=== PATIENT | female | born 1980 | race Caucasian/White ===

== ENCOUNTER → 2024-02-01 13:06 | Outpatient (REF) | payer OTHER, SELFPAY | LOC: PNTC 13:06 | PROVIDERS: ATTENDING PHYSICIAN Obstetrics & Gynecology | DX: O09.519 Supervision of elderly primigravida, unspecified trimester (principal) | CPT/HCPCS: 76801; 76817 ==

== ENCOUNTER 2024-02-15 06:29 | Day surgery (SDC) | payer OTHER, SELFPAY ==
[2024-02-15] VITALS (9 sets, daily range): BP systolic 109–138; BP diastolic 66–78; BMI 27.2
[2024-02-15] MEDS: NORMOSOL-R 1000 IV (11:52)
[2024-02-15 12:00] LABS: Hematocrit 39.8 % (37.0-47.0); Hemoglobin 13.7 g/dL (12.0-16.0)
[2024-02-15] MEDS: VIBRAMYCIN 270 MG IV (13:16)
[2024-02-15] MEDS: MOTRIN 600 MG PO (15:54)
== END 2024-02-15 16:30 | disposition home or self-care (01) ==
LOC: SDS 06:29
PROVIDERS: ATTENDING PHYSICIAN Obstetrics & Gynecology
DX: O02.1 Missed abortion (principal); Z3A.01 Less than 8 weeks gestation of pregnancy
CPT/HCPCS: 59820; 88305; 85014; 85018; 86850; 86900; 86901

== ENCOUNTER → 2025-05-22 15:27 | Outpatient (REF) | payer OTHER, SELFPAY | LOC: PNTC 15:27 | PROVIDERS: ATTENDING PHYSICIAN Obstetrics & Gynecology | DX: Z36.0 Encounter for antenatal screening for chromosomal anomalies (principal); Z36.82 Encounter for antenatal screening for nuchal translucency | CPT/HCPCS: 76801; 76813 ==

== ENCOUNTER → 2025-06-17 10:05 | Outpatient (REF) | payer OTHER, SELFPAY | LOC: PNTC 10:05 | PROVIDERS: ATTENDING PHYSICIAN Student in an Organized Health Care Education/Training Program | DX: O09.529 Supervision of elderly multigravida, unspecified trimester (principal) | CPT/HCPCS: 76805 ==

== ENCOUNTER → 2025-07-15 15:37 | Outpatient (REF) | payer OTHER, SELFPAY | LOC: PNTC 15:37 | PROVIDERS: ATTENDING PHYSICIAN Student in an Organized Health Care Education/Training Program | DX: O09.522 Supervision of elderly multigravida, second trimester (principal); Z36.86 Encounter for antenatal screening for cervical length; Z36.3 Encounter for antenatal screening for malformations | CPT/HCPCS: 76811; 76817 ==

== ENCOUNTER → 2025-08-26 10:14 | Outpatient (REF) | payer OTHER, SELFPAY | LOC: PNTC 10:14 | PROVIDERS: ATTENDING PHYSICIAN Obstetrics & Gynecology | DX: O09.522 Supervision of elderly multigravida, second trimester (principal) | CPT/HCPCS: 76816 ==

== ENCOUNTER → 2025-08-29 08:00 | Outpatient (REF) | payer OTHER, SELFPAY ==
--- NOTE | 2025-08-27 14:23 | PN.DIAED06 ---
Meal Plan - Gestational
- Breakfast
Gestational Diabetes Meal Plan Name: 1800 calories
Breakfast - Total Carbohydrate (grams): 30 (1 serving = 15 g)
Breakfast - Starch Carbohydrate: 1 (carbs: milk/yogurt, starches, fruit)
Breakfast - Fruit Carbohydrate: 0 (no fruit or juice before noon)
Breakfast - Milk Carbohydrate: 1
Breakfast - Nonstarchy Vegetables: Yes
Breakfast - Meat/Protein: 1 (1 serving = 1 oz/7g)
Breakfast - Fat: 2 (1 serving = 5 g)
- Morning Snack
Morning Snack - Total Carbohydrate (grams): 30
Morning Snack - Starch Carbohydrate: 1
Morning Snack - Fruit Carbohydrate: 0 (no fruit or juice before noon)
Morning Snack - Milk Carbohydrate: 1
Morning Snack - Nonstarchy Vegetables: Yes
Morning Snack - Meat/Protein: 0.5
Morning Snack - Fat: 0
- Lunch
Lunch - Total Carbohydrate (grams): 45
Lunch - Starch Carbohydrate: 2
Lunch - Fruit Carbohydrate: 1
Lunch - Milk Carbohydrate: 0
Lunch - Nonstarchy Vegetables: Yes
Lunch - Meat/Protein: 2
Lunch - Fat: 1
- Afternoon Snack
Afternoon Snack - Total Carbohydrate (grams): 30
Afternoon Snack - Starch Carbohydrate: 1
Afternoon Snack - Fruit Carbohydrate: 1
Afternoon Snack - Milk Carbohydrate: 0
Afternoon Snack - Nonstarchy Vegetables: Yes
Afternoon Snack - Meat/Protein: 1
Afternoon Snack - Fat: 0
- Dinner
Dinner - Total Carbohydrate (grams): 45
Dinner - Starch Carbohydrate: 2
Dinner - Fruit Carbohydrate: 0
Dinner - Milk Carbohydrate: 1
Dinner - Nonstarchy Vegetables: Yes
Dinner - Meat/Protein: 2
Dinner - Fat: 2
- Evening Snack
Evening Snack - Total Carbohydrate (grams): 30
Evening Snack - Starch Carbohydrate: 1
Evening Snack - Fruit Carbohydrate: 0
Evening Snack - Milk Carbohydrate: 1
Evening Snack - Nonstarchy Vegetables: Yes
Evening Snack - Meat/Protein: 1
Evening Snack - Fat: 1
--- NOTE | 2025-08-29 11:19 | PN.DE ---
Diabetes Education
- -
08/29/2025 GESTATIONAL DIABETES EDUCATION
Met with patient today for medical nutrition therapy. She is G2, P0, currently at 26 weeks of gestation, with an CHERYL of 11/25/2025
Explained glucose metabolism in body and what occurs during to cause increase blood sugar. Discussed importance of keeping BS well controlled to avoid complications to the baby during and after (macrosomia, hypoglycemia).
Discussed macronutrients, provided with 2000 blessing GDM meal plan. Advised to avoid concentrated and simple sugars like jelly, and switch from honey nut cheerios to plain cheerios. Eat lower fat diary, avoid fried foods and adhere to proper portions
of carbs, proteins, and mono/polyunsaturated fats. She is getting in [place] September 13, 2025, discussed proper portions of macronutrients.
Discussed physical activity and importance in lowering glucose values. Prior to she ran from 4-10 miles a day and ate a carb heavy diet. She is not exercising now as it feels uncomfortable to run. We discussed walking and light weights
as a possible option.
She presented to the appointment with a supplies for the Contour Next glucometer, provided a Contour Next glucometer with sample supplies. Reviewed proper testing technique, testing sites and testing pattern. She is aware to test FBS and 2 hr pp
each meal. Expected results for FBS <95 mg/dl and 2 hr pp <120 mg/dl. Noted for blood sugar of 117mg/dl 2 hr after breakfast this morning. Log sheet provided for her to record results, she will send a 4-day meal log with all her FBG and 2hr Post
prandial glucose numbers to this office for review. In addition, she will send all her glucose readings [facility] every Monday.
She was encouraged to reach out should she require insulin.
--- NOTE | 2025-09-02 16:11 | PN.DE ---
Diabetes Education
- -
GESTATIONAL DIABETES CONSULT
Talia sent me her food log and blood sugar numbers. AM fasting still elevated at 99, 99, 95, and 93 mg/dL. I educated her to add protein to a snack at night, she is currently drinking [employer] protein and a carb. Provided education to add other
proteins and avoid the [employer] to see if that helps (nuts, cheese, peanut butter, chicken,egg) and add a little fat such as cheese and avocado. Reinforced the goal is < 90 mg/dL in AM.
== END ==
LOC: DES 08:00
PROVIDERS: ATTENDING PHYSICIAN Obstetrics & Gynecology
DX: O24.419 Gestational diabetes mellitus in pregnancy, unspecified control (principal)
CPT/HCPCS: 99078